=== PATIENT | female | born 1995 | race African-American/Black ===

== ENCOUNTER 2021-05-05 10:29 | Emergency (ER) | payer OTHER, SELFPAY ==
[2021-05-05 10:44] VITALS: BP 107/77; PULSE 80; RESP 16; TEMP 36.6; O2SAT 99
--- NOTE | 2021-05-05 11:29 | ED.FEMALEGU ---
HPI - Female Genitourinary General Chief complaint: Urogenital-Female Stated complaint: uti Time Seen by Provider: 05/05/21 11:25 Source: patient and RN notes reviewed Mode of arrival: ambulatory Limitations: no limitations History of Present Illness HPI Narrative: Patient presents today requesting antibiotics. Patient is scheduled for liposuction on May 26 and has culture results for a urine culture with her today at is positive for a UTI. She is positive for E. coli with 25-50,000 colonies. She has been told by her surgeon in [place] that she needs to get started on antibiotics before her surgery at a local clinic or PCPs office. She is not resistant to any of the listed antibiotics in her labs states she is not as well. She does not currently have any UTI symptoms. Related Data Allergies Allergy/AdvReac Type Severity Reaction Status Date / Time No Known Allergies Allergy Verified 05/05/21 11:03 Review of Systems Review of Systems: CONSTITUTIONAL: Denies body aches, fever, chills, or sweats. EYES: Denies visual changes, redness, or discharge. ENT: Denies rhinorrhea, congestion, sore throat, or otalgia. CARDIOVASCULAR: Denies chest pain, palpitations, or edema. RESPIRATORY: Denies cough or dyspnea. GASTROINTESTINAL: Denies abdominal pain, nausea, vomiting, or diarrhea. GENITOURINARY: Denies dysuria or hematuria. SKIN: Denies rash, itching, or wounds. MUSCULOSKELETAL: Denies back pain, joint pain, or myalgia. NEUROLOGIC: Denies headache, numbness, tingling, or weakness. PSYCH: Denies depression or anxiety. PMFSH Comments At time of signature, I have reviewed and agree with nursing past medical, surgical, social and family history unless otherwise noted. Please see nursing chart for further information. There is no relevant family history pertinent to the presenting complaint Exam Narrative: GENERAL: Well-appearing, well-nourished, and in no acute distress. HEAD: Normocephalic, atraumatic. EYES: EOMI. No redness or drainage. Conjunctivae normal. ENT: Mucous membranes pink and moist. NECK: Normal AROM. CHEST: No respiratory distress. Clear to auscultation. HEART: Regular rate and rhythm. No murmur appreciated. Normal peripheral pulses. ABDOMEN: Soft, nontender, nondistended, normal active bowel sounds. MUSCULOSKELETAL: No bony tenderness. EXTREMITIES: Normal range of motion. No edema. SKIN: Warm, dry, no rash. Capillary refill normal. Normal skin turgor. NEURO: No focal deficits. Alert and oriented x3. Gait steady. PSYCH: Normal affect. No signs of depression or anxiety. Course Vital Signs Vital signs: Vital Signs Temperature 97.9 F 05/05/21 10:44 Pulse Rate 80 05/05/21 10:44 Respiratory Rate 16 05/05/21 10:44 Blood Pressure 107/77 05/05/21 10:44 Pulse Oximetry 99 05/05/21 10:44 Temperature 97.9 F 05/05/21 10:44 Pulse Rate 80 05/05/21 10:44 Respiratory Rate 16 05/05/21 10:44 Blood Pressure 107/77 05/05/21 10:44 Pulse Oximetry 99 05/05/21 10:44 Reviewed MDM - Female Genitourinary Differential Diagnosis Differential diagnosis: Likely urinary tract infection Medical Records Attestation: I reviewed the patient's medical records. Lab Data Attestation: I reviewed the patient's lab results. Critical Care Time Critical Care Time Critical Care Time: No Discharge Plan Discharge Clinical Impression: Urinary tract infection Qualifiers: Urinary tract infection type: acute cystitis Hematuria presence: without hematuria Qualified Code(s): N30.00 - Acute cystitis without hematuria Patient Disposition: Home, Self-Care Condition: Stable Instructions: Antibiotic Form, Urinary Tract Infection in Women (DC) Additional Instructions: Please take the Macrobid as prescribed. Follow-up with your surgeon with any concerns. Patient Language: Ukrainian Prescriptions: New nitrofurantoin monohyd/m-cryst [Macrobid] 100 mg capsule 100 mg PO Q12H 5 Da
== END 2021-05-05 11:35 | disposition home or self-care (01) ==
PROVIDERS: Emergency Provider Nurse Practitioner
DX: N30.00 Acute cystitis without hematuria (principal)
CPT/HCPCS: 99203; G0463

== ENCOUNTER 2023-05-20 01:01 | Emergency (ER) | payer OTHER, SELFPAY ==
[2023-05-20 01:05] VITALS: BP 134/93; PULSE 80; RESP 18; TEMP 36.4; O2SAT 100
--- NOTE | 2023-05-20 01:29 | ED.GENADULT ---
HPI - General Adult General Chief complaint: Unspecified Stated complaint: SANTIAGO, think maybe I took too much tylenol. Time Seen by Provider: 05/20/23 01:19 History of Present Illness HPI narrative: Patient presents the emergency department with persistent headache and concern for taking too much Tylenol. She has had a headache persistent for the past few weeks. Had a miscarriage and was told that the headache should resolve once the hormones are out of her body. However it has been 2 weeks and she is still having headaches. She states the headache does not allow her to study and Tylenol is not helping. She cannot take Advil due to getting diarrhea. Patient also took Benadryl earlier today without improvement. Related Data Home Medications Medication Instructions Recorded Confirmed No Home Medications 05/20/23 05/20/23 Allergies Allergy/AdvReac Type Severity Reaction Status Date / Time No Known Allergies Allergy Verified 05/20/23 01:10 Review of Systems Review of Systems: Negative except for what is documented in the HPI Exam Narrative: GENERAL: Well-appearing, well-nourished, and in no acute distress. HEAD: Normocephalic, atraumatic. EYES: PERRLA and EOMI. ENT: Nares clear, no rhinorrhea or epistaxis. Mucous membranes moist. NECK: Supple. CHEST: Clear to auscultation. No respiratory distress. HEART: Regular rate and rhythm. ABDOMEN: Soft, nontender, nondistended. EXTREMITIES: Normal range of motion. No edema. SKIN: Warm, dry, no rash. NEURO: No focal deficits. Alert and oriented x3. PSYCH: Normal mood and affect. Course Vital Signs Vital signs: Vital Signs Temperature 36.4 C L 05/20/23 01:05 Pulse Rate 80 05/20/23 01:05 Respiratory Rate 18 05/20/23 01:05 Blood Pressure 134/93 H 05/20/23 01:05 Pulse Oximetry 100 05/20/23 01:05 Oxygen Delivery Room Air 05/20/23 01:05 Temperature 36.4 C L 05/20/23 01:05 Pulse Rate 80 05/20/23 01:05 Respiratory Rate 18 05/20/23 01:05 Blood Pressure 134/93 H 05/20/23 01:05 Pulse Oximetry 100 05/20/23 01:05 Oxygen Delivery Room Air 05/20/23 01:05 Medical Decision Making MDM Narrative Medical decision making narrative: Patient's headache is much improved. Will DC with Fioricet so she can limit her Tylenol intake at home. Beta is 0 and Tylenol level is under 30 Vital Signs Vital Signs: Vital Signs Temperature 36.4 C L 05/20/23 01:05 Pulse Rate 80 05/20/23 01:05 Respiratory Rate 18 05/20/23 01:05 Blood Pressure 134/93 H 05/20/23 01:05 Pulse Oximetry 100 05/20/23 01:05 Oxygen Delivery Room Air 05/20/23 01:05 Temperature 36.4 C L 05/20/23 01:05 Pulse Rate 80 05/20/23 01:05 Respiratory Rate 18 05/20/23 01:05 Blood Pressure 134/93 H 05/20/23 01:05 Pulse Oximetry 100 05/20/23 01:05 Oxygen Delivery Room Air 05/20/23 01:05 Lab Data Labs: Lab Results 05/20/23 Range/Units 01:54 Beta HCG, Quant < 2.39 mIU/ML Acetaminophen 29 (10-30) ug/mL Discharge Plan Discharge Clinical Impression: Headache, Tylenol ingestion Patient Disposition: Home, Self-Care Condition: Stable Instructions: Acute Headache (ED) Additional Instructions: Drink plenty of fluids start with Tylenol for headache and if it does not improve take Fioricet Do not drive or work after taking Fioricet, may make you drowsy Prescriptions: No Action No Home Medications Follow-up/Referrals: PHYSICIAN NOT ON STAFF,NONSTAFF [Primary Care Provider] - Kushal Smith MD [Physician] - Time of Disposition: 02:49
[2023-05-20] MEDS: METOCLOPRAMIDE HCL 10 MG TABLET PO (01:52)
[2023-05-20] MEDS: diphenhydrAMINE HCl CAP 25 MG CAPSULE 50 MG PO (01:52)
[2023-05-20 02:09] LABS: Acetaminophen 29 ug/mL (10-30)
[2023-05-20 02:27] LABS: Beta HCG Quantitative < 2.39 mIU/ML
== END 2023-05-20 03:04 | disposition home or self-care (01) ==
PROVIDERS: Emergency Provider Emergency Medicine
DX: R51.9 Headache, unspecified (principal); T39.1X1A Poisoning by 4-Aminophenol derivatives, accidental (unintentional), initial encounter
CPT/HCPCS: 36415; 80307; 84702; 99283; A9270